=== PATIENT | male | born 1955 | race Caucasian/White ===

== ENCOUNTER 2016-11-10 08:32 | Inpatient (IN) | payer BC ==
[~2016-11-10] VITALS: Ht 185.4 cm; Wt 85.5 kg
[2016-11-10] MEDS ORDERED: DILTIAZEM 125 MG in DEXTROSE 5% 100 ML IV SCH (08:54)
[2016-11-10] MEDS ORDERED: DILTIAZEM 5 MG/ML, 5ML IV ONE (09:00)
[2016-11-10] MEDS ORDERED: SODIUM CHLORIDE FLUSH 10ML SYR IVF ONE (09:00)
[2016-11-10] MEDS ORDERED: DILTIAZEM 5 MG/ML, 5ML ONE (09:04)
[2016-11-10] MEDS ORDERED: NITROGLYCERIN SINGLE TAB 0.4 MG SL ONE (09:05)
[2016-11-10] MEDS: NITROGLYCERIN SINGLE TAB 0.4 MG SL PRN ×3 (09:11→09:22)
[2016-11-10] MEDS ORDERED: ASPIRIN 81 MG TABLET CHEW ONE (09:12)
[2016-11-10 09:23] LABS: BLOOD UREA NITROGEN 8 mg/dL (7-18)
[2016-11-10] MEDS ORDERED: ASPIRIN 81 MG TABLET CHEW PO ONE (09:30)
[2016-11-10] MEDS ORDERED: PLEASE ENTER ALLERGIES MC SCH ×2 (09:30)
[2016-11-10] MEDS ORDERED: ONDANSETRON 2MG/ML, 2ML ONE (10:32)
[2016-11-10] MEDS ORDERED: MORPHINE SULFATE 4 MG/ML, 1ML ONE ×2 (10:32→13:45)
[2016-11-10] MEDS: MORPHINE SULFATE 4 MG/ML, 1ML IVPush PRN ×2 (10:34→13:47)
[2016-11-10] MEDS ORDERED: ONDANSETRON 2MG/ML, 2ML IVPush ONE (11:00)
[2016-11-10] MEDS ORDERED: OMNIPAQUE 350 MG/ML, 100ML BOTTLE ONE (11:06)
[2016-11-10] MEDS ORDERED: SODIUM CHLORIDE FLUSH 10ML SYR IVF PRN (12:00)
[2016-11-10] MEDS ORDERED: NS + 20MEQ KCL 1,000 ML IV SCH (13:01)
[2016-11-10] MEDS ORDERED: HEPARIN 25,000 UNITS/500ML PMX 500 ML ONE (13:08)
[2016-11-10] MEDS ORDERED: HEPARIN 5,000 UNITS/ML, 1ML ONE (13:08)
[2016-11-10] MEDS: HEPARIN 25,000 UNITS/500ML PMX 500 ML IV PRN (13:12)
[2016-11-10] MEDS ORDERED: NITROGLYCERIN 0.4 MG BOTTLE (25 TABS) SL PRN (13:30)
[2016-11-10] MEDS ORDERED: HYDROcodone/APAP 5/325 TABLET PO PRN (13:30)
[2016-11-10] MEDS ORDERED: BISACODYL 10 MG SUPP PR PRN (13:30)
[2016-11-10] MEDS ORDERED: ACETAMINOPHEN 325 MG TABLET PO PRN (13:30)
[2016-11-10] MEDS ORDERED: DOCUSATE 100 MG CAPSULE PO PRN (13:30)
[2016-11-10] MEDS ORDERED: ONDANSETRON 2MG/ML, 2ML IVPush PRN (13:30)
[2016-11-10] MEDS ORDERED: LABETALOL 5MG/ML 40ML VIAL IVPush PRN (13:30)
[2016-11-10] MEDS ORDERED: HEPARIN 5,000 UNITS/ML, 1ML IV ONE (13:30)
[2016-11-10] MEDS ORDERED: POLYETHYLENE GLYCOL 17 GM PACKET PO PRN (13:30)
[2016-11-10] MEDS ORDERED: NS + 20MEQ KCL 1,000 ML IV ONE (13:39)
[2016-11-10 15:22] VITALS: BP 106/68
[2016-11-10] MEDS: morphine SULFATE 10 MG/ML, 1ML IVPush PRN ×2 (15:39→20:03)
[2016-11-10 16:25] LABS: IS PT STATUS REG ER OR PRE ER? NO
[2016-11-10] MEDS: METOPROLOL TARTRATE 25 MG TABLET PO SCH (17:56)
[2016-11-10 19:06] VITALS: BP 103/70
[2016-11-10] MEDS: HEPARIN 5,000 UNITS/ML, 1ML IV PRN (20:03)
[2016-11-10 23:02] LABS: IS PT STATUS REG ER OR PRE ER? NO
[2016-11-11 02:30] VITALS: BP 103/67
[2016-11-11] MEDS: morphine SULFATE 10 MG/ML, 1ML IVPush PRN ×6 (02:41→21:27)
[2016-11-11 02:48] LABS: BLOOD UREA NITROGEN 14 mg/dL (7-18)
[2016-11-11] MEDS: HEPARIN 5,000 UNITS/ML, 1ML IV PRN ×2 (03:23→21:27)
[2016-11-11] MEDS ORDERED: ASPIRIN 325 MG TABLET EC PO SCH (06:00)
[2016-11-11] MEDS: METOPROLOL TARTRATE 25 MG TABLET PO SCH ×2 (06:08→16:50)
[2016-11-11 07:59] VITALS: BP 94/60
[2016-11-11] MEDS ORDERED: REGADENOSON 0.4 MG/5 ML SYRINGE ONE (08:55)
[2016-11-11] MEDS: HEPARIN 25,000 UNITS/500ML PMX 500 ML IV PRN (12:54)
[2016-11-11 14:40] VITALS: BP 107/71
[2016-11-11 21:21] VITALS: BP 99/68
[2016-11-12 03:15] VITALS: BP 101/66
[2016-11-12] MEDS: morphine SULFATE 10 MG/ML, 1ML IVPush PRN ×3 (03:30→11:41)
[2016-11-12 05:42] LABS: BLOOD UREA NITROGEN 18 mg/dL (7-18)
[2016-11-12 05:50] VITALS: BP 100/70
[2016-11-12] MEDS: METOPROLOL TARTRATE 25 MG TABLET PO SCH ×2 (06:00→16:14)
[2016-11-12] MEDS ORDERED: ASPIRIN 81 MG TABLET EC PO SCH (06:00)
[2016-11-12] MEDS: HEPARIN 5,000 UNITS/ML, 1ML IV PRN (06:18)
[2016-11-12] MEDS: SODIUM CHLORIDE 0.9% 1,000 ML IV SCH ×2 (06:18→15:21)
[2016-11-12 07:32] VITALS: BP 98/69
[2016-11-12 08:08] VITALS: BP 96/63
[2016-11-12] MEDS ORDERED: HEPARIN 1,000 UNITS/ML, 10ML ONE (13:49)
[2016-11-12] MEDS ORDERED: VERAPAMIL 2.5 MG/ML, 2ML ONE (13:49)
[2016-11-12] MEDS ORDERED: MIDAZOLAM 1 MG/ML, 5ML ONE (13:49)
[2016-11-12] MEDS ORDERED: TICAGRELOR 90 MG TABLET ONE (13:49)
[2016-11-12] MEDS ORDERED: LIDOCAINE 2%, 20ML ONE (13:49)
[2016-11-12] MEDS ORDERED: BIVALIRUDIN 250 MG ONE (13:49)
[2016-11-12] MEDS ORDERED: FENTANYL PF 100 MCG/2ML ONE (13:49)
[2016-11-12] MEDS ORDERED: SODIUM CHLORIDE 0.9% 1,000 ML IV SCH (14:29)
[2016-11-12 14:44] VITALS: BP 108/66
[2016-11-12] MEDS: DABIGATRAN 150 MG CAPSULE PO SCH ×2 (16:14→16:55)
[2016-11-12] MEDS ORDERED: DABI150C PO (17:00)
[2016-11-12] MEDS ORDERED: METO25TA35 PO (17:00)
== END 2016-11-12 17:20 | disposition home or self-care (01) | DRG 287 ==
LOC: ED 10:08 → EDIP 11:53 → 5SO 15:15 → DCLOUNGE 11-12 17:07
PROVIDERS: ADMIT Family Medicine; ATTEND Internal Medicine
PROC: 4A023N7 Measurement of Cardiac Sampling and Pressure, Left Heart, Percutaneous Approach (ICD-10-PCS; principal; 2016-11-12)
PROC: B2111ZZ Fluoroscopy of Multiple Coronary Arteries using Low Osmolar Contrast (ICD-10-PCS; 2016-11-12)
PROC: B2151ZZ Fluoroscopy of Left Heart using Low Osmolar Contrast (ICD-10-PCS; 2016-11-12)
DX: I48.91 Unspecified atrial fibrillation (principal); I50.20 Unspecified systolic (congestive) heart failure; D68.69 Other thrombophilia; R73.9 Hyperglycemia, unspecified; R91.1 Solitary pulmonary nodule; F17.210 Nicotine dependence, cigarettes, uncomplicated; I25.119 Atherosclerotic heart disease of native coronary artery with unspecified angina pectoris; I11.0 Hypertensive heart disease with heart failure; I25.5 Ischemic cardiomyopathy; Z71.6 Tobacco abuse counseling; Z82.49 Family history of ischemic heart disease and other diseases of the circulatory system
CPT/HCPCS: 36415; 71010; 71275; 78452; 80048; 80061; 82040; 83880; 84436; 84443; 84484; 85025; 85520; 85610; 85730; 93005; 93017; 93306; 93458; 96374; 96375; 96376; 99156; C1894; J0583; J1644; J2250; J2405; J2785; J3010; J3480; J3490; Q9967; A9502; C9898; J2270; J7030

== ENCOUNTER → 2017-02-24 | Outpatient (CLI) | payer BC ==
[~2017-02-24] MED LIST: DABI150C PO; METO25TA35 PO
== END | disposition home or self-care (01) ==
LOC: CFH 08:46
PROVIDERS: ATTEND Internal Medicine
DX: R91.1 Solitary pulmonary nodule (principal)
CPT/HCPCS: 71250

== ENCOUNTER 2017-03-07 06:19 | Day surgery (SDC) | payer BC ==
[~2017-03-07] VITALS: Ht 185.4 cm; Wt 86.4 kg
[2017-03-07 06:49] VITALS: BP 126/88
[2017-03-07] MEDS ORDERED: ASPI-621 PO (07:19)
[2017-03-07] MEDS ORDERED: METO25TA91 PO (07:19)
[2017-03-07] MEDS ORDERED: DABI150C PO (07:39)
[2017-03-07 07:52] LABS: BLOOD UREA NITROGEN 11 mg/dL (7-18)
[2017-03-07] MEDS ORDERED: PROPOFOL 10 MG/ML, 20ML ONE (11:31)
[2017-03-07] MEDS ORDERED: METOPROLOL SUCCINATE 25 MG TAB.ER.24H PO SCH (12:00)
[2017-03-07] MEDS ORDERED: DABIGATRAN 150 MG CAPSULE PO SCH (12:00)
== END 2017-03-07 14:00 ==
LOC: CACL 06:19
PROVIDERS: ATTEND Internal Medicine Cardiovascular Disease
DX: I48.91 Unspecified atrial fibrillation (principal); Z79.82 Long term (current) use of aspirin; Z79.01 Long term (current) use of anticoagulants; I42.9 Cardiomyopathy, unspecified
CPT/HCPCS: 36415; 80048; 92960; 93005; J2704